=== PATIENT | female | born 1960 | race Native Hawaiian/Other Pacific Islander ===

== ENCOUNTER 2018-01-29 10:13 | Emergency (ER) | payer BC ==
[~2018-01-29] VITALS: Ht 170.2 cm; Wt 102.1 kg
[~2018-01-29 10:13] MED LIST: CELEBREX200 MG PO; DULO60CA2 OR; FOLI1TAB26 PO; FURO20TA67 PO; LEVO0.1T6 PO; LISITAB PO; METHO2.5 PO
[2018-01-29 10:15] VITALS: TEMP 99.1
[2018-01-29 11:27] LABS: PLATELET COUNT 207 K/uL (152-353)
[2018-01-29 11:34] LABS: POTASSIUM 3.6 mmol/L (3.6-5.2)
[2018-01-29 12:00] VITALS: BP 154/83
== END 2018-01-29 12:49 | disposition home or self-care (01) ==
LOC: ED 10:13
PROVIDERS: Family Medicine
PROC: 2Y41X5Z Packing of Nasal Region using Packing Material (ICD-10-PCS; principal; 2018-01-29)
DX: R04.0 Epistaxis (principal)
CPT/HCPCS: 36415; 80053; 85027; 99283

== ENCOUNTER 2022-09-26 08:53 | Outpatient (CLI) | payer OTHER | END 2022-09-26 19:12 | disposition home or self-care (01) | LOC: US 08:53 | PROVIDERS: ATTEND Internal Medicine | DX: E04.8 Other specified nontoxic goiter (principal); E11.9 Type 2 diabetes mellitus without complications ==